=== PATIENT | female | born 1990 | race American Indian/Alaskan Native ===

== ENCOUNTER 2017-06-16 18:07 | Outpatient (CLI) | payer SELFPAY ==
[2017-06-16 18:43] VITALS: BP 104/61
[2017-06-16 19:50] LABS: Bacteria,Urine 2+ /HPF (Negative); Bilirubin,Urine NEG (Negative); Blood,Urine NEG (Negative); Color,Urine Yellow (Yellow); Mucus,Urine FEW /HPF; Nitrite,Urine NEG (Negative); Protein,Urine <15 mg/dL mg/dL (Negative)
[2017-06-16] MEDS ORDERED: LACTATED RINGERS 500 ML IV ONE (20:00)
[2017-06-16 20:25] LABS: Basophils % (Auto) 0.3 % (0.0-1.8); Eosinophils % (Auto) 0.2 % (0.0-4.3); Hematocrit 30.7 % (30.3-42.9); Hemoglobin 10.4 gm/dl (10.1-14.3); Lymphocytes # (Auto) 1.8 K/mm3 (1.2-5.4); Lymphocytes % (Auto) 19.9 % (13.4-35.0); Mean Corpuscular HGB Conc 34 % (30-34); Mean Corpuscular Hemoglobin 29 pg (28-32); Mean Corpuscular Volume 85 fl (79-97); Monocytes # (Auto) 0.8 K/mm3 (0.0-0.8); Monocytes % (Auto) 8.8 % (0.0-7.3); Platelet Count 170 K/mm3 (140-440); Red Blood Count 3.61 M/mm3 (3.65-5.03); Red Cell Distribution Width 13.6 % (13.2-15.2)
--- NOTE | 2017-06-16 20:36 | Ultrasound Report ---
FINAL REPORT PROCEDURE: US OB FOLLOW UP TECHNIQUE: Real-time limited sonographic examination was performed for evaluation of well-being for each fetus with image documentation (1 or more fetuses). CPT 09671 HISTORY: no care COMPARISON: No prior studies are available for comparison. FINDINGS: There is a single living intrauterine gestation currently visualized in the vertex presentation with a heart rate of 136 beats per minute. Subjectively the amount of amniotic fluid appears normal. The amniotic fluid index is normal measuring 12.3 centimeter. The placenta is located fundal and is grade 2. No evidence of placenta abruption or placenta previa. Cervix length approximately 3.1 centimeter. Detailed exam of the anatomy was not performed as this was not requested. No gross abnormality is seen. MEASUREMENTS BPD: 7.7 centimeter equals 31 week 0 day. HC: 29 centimeter equals 31 weeks 6 days. AC: 28.4 centimeter equals 32 week 3 days. FL: 6.1 centimeter equaled 31 week 4 days. Mean Gestational Age (composite criteria): 31 weeks 5 days. Estimated Weight: 1875 grams +/-270 8 grams equals 4 pounds 2 ounces plus or minus ten ounces Interval growth: No prior studies. Estimated Due Date (08/13/2017 +/-3 weeks according to today's study.. IMPRESSION: There is a single living intrauterine gestation currently visualized in the vertex presentation. Average sonographic age by today's study is 31 week 5 days placing the EDC at 08/13/2017 +/-3 weeks. The amount of amniotic fluid subjectively is normal. Placenta located fundal and grade 2. No evidence of placenta abruption or placenta previa. Detailed exam of the anatomy was not performed as this was not requested.
--- NOTE | 2017-06-16 20:39 | Ultrasound Report ---
FINAL REPORT PROCEDURE: US OB TRANSVAGINAL TECHNIQUE: Limited transvaginal OB ultrasound performed to evaluate cervix length CPT 29251 HISTORY: CVX LENGTH COMPARISON: No prior studies are available for comparison. FINDINGS: Cervix length is 2.8 centimeter. No evidence of placenta previa. Limited study of the fetus also performed today under transabdominal OB ultrasound already dictated earlier today. IMPRESSION: Cervix length 2.8 centimeter. No evidence of placenta previa.
== END 2017-06-16 21:00 | disposition home or self-care (01) ==
LOC: TRG 18:07
PROVIDERS: ATTEND Obstetrics & Gynecology Gynecology
DX: O99.333 Smoking (tobacco) complicating pregnancy, third trimester (principal); O47.03 False labor before 37 completed weeks of gestation, third trimester; Z3A.31 31 weeks gestation of pregnancy
CPT/HCPCS: 36415; 76816; 76817; 81001; 82731; 85025; 86592; 86706; 86762; 87806; J7120; 59025; 96360

== ENCOUNTER 2020-01-23 23:53 | Outpatient (CLI) | payer MEDICAID ==
[2020-01-24 00:16] VITALS: BP 141/65
== END 2020-01-24 01:50 | disposition home or self-care (01) ==
LOC: TRG 23:53 → APU 23:54 → TRG 01-24 01:50
PROVIDERS: ATTEND Obstetrics & Gynecology
DX: O47.03 False labor before 37 completed weeks of gestation, third trimester (principal); Z3A.36 36 weeks gestation of pregnancy
CPT/HCPCS: 59025

== ENCOUNTER 2021-01-30 13:45 | Emergency (ER) | payer MEDICAID ==
[2021-01-30 16:30] VITALS: BP 112/70
--- NOTE | 2021-01-30 16:47 | Emergency Department Report ---
ED General Adult HPI - General Chief complaint: Upper Respiratory Infection Stated complaint: COVID SYMPTOMS Time Seen by Provider: 01/30/21 16:35 Source: patient Mode of arrival: Ambulatory Limitations: No Limitations - History of Present Illness Initial comments: 30-year-old -Iranian female patient presents with complaints of cough and loss of taste and smell x2 days. She reports 3 days ago she had a few seconds of shortness of breath, but denies any since or currently. Patient is currently 8 months . She denies any hemoptysis, leg pain/swelling, recent long travel, history of DVT/PE, or recent known sick contacts. She also denies chest pain. Patient states she received COVID-19 testing this morning and that her results will take 3 to 4 days to return. No nausea or vomiting or abdominal pain per patient or fever/chills/sweats. - Related Data Previous Rx's Medication Instructions Recorded Last Taken Type ALBUTEROL NEB's [Proventil 0.083% 2.5 mg IH Q4H PRN #25 neb 06/30/14 Unknown Rx NEBS] Albuterol Sulfate [Ventolin HFA] 2 puff IH Q4H PRN #1 hfa.aer.ad 06/30/14 Unk nown Rx Azithromycin [Zithromax Z-EDGARD] 250 mg PO DAILY #6 tablet 06/30/14 Unknown Rx HYDROcodone/APAP 5-325 [[place] 1 each PO Q6HR PRN #10 tablet 06/30/14 Unknown Rx 5-325 mg TAB] Ondansetron [Zofran Odt] 4 mg SL Q6H PRN #8 tab.rapdis 06/30/14 Unknown Rx Nitrofurantoin Monohyd/M-Cryst 100 mg PO BID #20 capsule 06/16/17 Unknown Rx [Macrobid 100 mg Capsule] Allergies Allergy/AdvReac Type Severity Reaction Status Date / Time No Known Allergies Allergy Verified 06/30/14 16:58 ED Review of Systems ROS: Stated complaint: COVID SYMPTOMS Other details as noted in HPI Constitutional: denies: chills, diaphoresis, fever, malaise, weakness ENT: denies: throat pain Respiratory: cough (Nonproductive). denies: shortness of breath Cardiovascular: denies: chest pain Gastrointestinal: denies: abdominal pain Musculoskeletal: denies: back pain Hematological/Lymphatic: denies: swollen glands ED Past Medical Hx - Past Medical History Previous Medical History?: No Hx Hypertension: No Hx Diabetes: No Hx Deep Vein Thrombosis: No Hx Renal Disease: No Hx Sickle Cell Disease: No Hx Seizures: No Hx Asthma: No Hx HIV: No - Surgical History Past Surgical History?: No - Social History Smoking Status: Former Smoker - Medications Home Medications: Home Medications Medication Instructions Recorded Confirmed Last Taken Type ALBUTEROL NEB's [Proventil 0.083% 2.5 mg IH Q4H PRN #25 neb 06/30/14 Unknown Rx NEBS] Albuterol Sulfate [Ventolin HFA] 2 puff IH Q4H PRN #1 hfa.aer.ad 06/30/14 Unknown Rx Azithromycin [Zithromax Z-EDGARD] 250 mg PO DAILY #6 tablet 06/30/14 Unknown Rx HYDROcodone/APAP 5-325 [[place] 1 each PO Q6HR PRN #10 tablet 06/30/14 Unknown Rx 5-325 mg TAB] Ondansetron [Zofran Odt] 4 mg SL Q6H PRN #8 tab.rapdis 06/30/14 Unknown Rx Nitrofurantoin Monohyd/M-Cryst 100 mg PO BID #20 capsule 06/16/17 Unknown Rx [Macrobid 100 mg Capsule] ED Physical Exam - General Limitations: No Limitations General appearance: alert, in no apparent distress - Head Head exam: Present: atraumatic, normocephalic - Eye Eye exam: Present: normal appearance. Absent: scleral icterus - Respiratory Respiratory exam: Present: normal lung sounds bilaterally. Absent: respiratory distress - Cardiovascular Cardiovascular Exam: Present: regular rate, normal rhythm - Extremities Exam Extremities exam: Absent: calf tenderness - Neurological Exam Neurological exam: Present: alert, oriented X3 - Psychiatric Psychiatric exam: Present: normal affect, normal mood - Skin Skin exam: Present: warm, dry, intact, normal color. Absent: rash ED Course Vital Signs 01/30/21 16:27 Temperature 98 F Pulse Rate 92 H Respiratory 18 Rate Blood Pressure 112/70 O2 Sat by Pulse 99 Oximetry ED Medical Decision Making - Medical Decision Making 30-year-old -Iranian female patient presents with complaints of cough and loss of taste and smell x2 days. She reports 3 days ago she had a few seconds of shortness of breath, but denies any since or currently. Patient is currently 8 months . She denies any hemoptysis, leg pain/swelling, recent long travel, history of DVT/PE, or recent known sick contacts. She also denies chest pain. Patient states she received COVID-19 testing this morning and that her results will take 3 to 4 days to return. No nausea or vomiting or abdominal pain per patient or fever/chills/sweats. Lung exam is normal. She denies any shortness of breath. Pulse ox is normal. Vi tals are within normal limits. Recommend patient self quarantine's until her COVID-19 results are returned. Discussed in detail signs and symptoms that should prompt immediate return to the emergency department with patient who verbalizes understanding. She is well-appearing and stable for discharge home. Patient to follow-up with her primary care doctor in 5 to 7 days. Critical care attestation.: If time is entered above; I have spent that time in minutes in the direct care of this critically ill patient, excluding procedure time. ED Disposition Clinical Impression: Suspected 2019-nCoV infection Disposition: HOME / SELF CARE / HOMELESS Is pt being admited?: No Condition: Stable Instructions: and COVID-19, Prevent the Spread of COVID-19 if You Are Sick - [facility] Referrals: PRIMARY CARE, [Primary Care Provider] - 3-5 Days Forms: Work/School Release Form(ED)
== END 2021-01-30 17:56 | disposition home or self-care (01) ==
LOC: ED 13:45
DX: R05 Cough (principal); Z20.822 Contact with and (suspected) exposure to COVID-19
CPT/HCPCS: 99282

== ENCOUNTER 2021-09-08 12:36 | Emergency (ER) | payer MEDICAID ==
--- NOTE | 2021-09-08 13:10 | Emergency Department Report ---
ED ENT HPI - General Chief complaint: Dental/Oral Stated complaint: TEETH AND GUM PAIN Time Seen by Provider: 09/08/21 13:06 Source: patient Mode of arrival: Ambulatory Limitations: No Limitations - History of Present Illness Initial comments: Patient is a 31-year-old female that comes to the emergency room complaining of left molar/wisdom tooth area pain. Patient denies fever or chills. She has not seen a dentist. ABCs are intact, she is controlling secretions Patient is ambulatory and in no acute distress on arrival to ER MD complaint: tooth pain -: Gradual, days(s) Severity: moderate Severity scale (0 -10): 5 Quality: aching Consistency: constant Improves with: none Worsens with: none Context- Dental: history of dental caries Associated Symptoms: toothache. denies: fever, cough, gum swelling, pain with swallowing, sore throat, tinnitus, hearing loss, discharge from ear, rhinorrhea - Related Data Previous Rx's Medication Instructions Recorded Last Taken Type ALBUTEROL NEB's [Proventil 0.083% 2.5 mg IH Q4H PRN #25 neb 06/30/14 Unknown Rx NEBS] Albuterol Sulfate [Ventolin HFA] 2 puff IH Q4H PRN #1 hfa.aer.ad 06/30/14 Unknown Rx Azithromycin [Zithromax Z-EDGARD] 250 mg PO DAILY #6 tablet 06/30/14 Unknown Rx HYDROcodone/APAP 5-325 [[place] 1 each PO Q6HR PRN #10 tablet 06/30/14 Unknown Rx 5-325 mg TAB] Ondansetron [Zofran Odt] 4 mg SL Q6H PRN #8 tab.rapdis 06/30/14 Unknown Rx Nitrofurantoin Monohyd/M-Cryst 100 mg PO BID #20 capsule 06/16/17 Unknown Rx [Macrobid 100 mg Capsule] Amoxicillin [Trimox CAP] 500 mg PO BID #20 capsule 09/08/21 Unknown Rx Allergies Allergy/AdvReac Type Severity Reaction Status Date / Time No Known Allergies Allergy Verified 06/30/14 16:58 ED Dental HPI - General Chief complaint: Dental/Oral Stated complaint: TEETH AND GUM PAIN Time Seen by Provider: 09/08/21 13:06 - Related Data Previous Rx's Medication Instructions Recorded Last Taken Type ALBUTEROL NEB's [Proventil 0.083% 2.5 mg IH Q4H PRN #25 neb 06/30/14 Unknown Rx NEBS] Albuterol Sulfate [Ventolin HFA] 2 puff IH Q4H PRN #1 hfa.aer.ad 06/30/14 Unknown Rx Azithromycin [Zithromax Z-EDGARD] 250 mg PO DAILY #6 tablet 06/30/14 Unknown Rx HYDROcodone/APAP 5-325 [[place] 1 each PO Q6HR PRN #10 tablet 06/30/14 Unknown Rx 5-325 mg TAB] Ondansetron [Zofran Odt] 4 mg SL Q6H PRN #8 tab.rapdis 06/30/14 Unknown Rx Nitrofurantoin Monohyd/M-Cryst 100 mg PO BID #20 capsule 06/16/17 Unknown Rx [Macrobid 100 mg Capsule] Amoxicillin [Trimox CAP] 500 mg PO BID #20 capsule 09/08/21 Unknown Rx Allergies Allergy/AdvReac Type Severity Reaction Status Date / Time No Known Allergies Allergy Verified 06/30/14 16:58 ED Review of Systems ROS: Stated complaint: TEETH AND GUM PAIN Other details as noted in HPI Comment: All other systems reviewed and negative ED Past Medical Hx - Past Medical History Previous Medical History?: No Hx Hypertension: No Hx Diabetes: No Hx Deep Vein Thrombosis: No Hx Renal Disease: No Hx Sickle Cell Disease: No Hx Seizures: No Hx Asthma: No Hx HIV: No - Surgical History Past Surgical History?: No - Family History Family history: no significant - Social History Smoking Status: Former Smoker Substance Use Type: None - Medications Home Medications: Home Medications Medication Instructions Recorded Confirmed Last Taken Type ALBUTEROL NEB's [Proventil 0.083% 2.5 mg IH Q4H PRN #25 neb 06/30/14 Unknown Rx NEBS] Albuterol Sulfate [Ventolin HFA] 2 puff IH Q4H PRN #1 hfa.aer.ad 06/30/14 Unknown Rx Azithromycin [Zithromax Z-EDGARD] 250 mg PO DAILY #6 tablet 06/30/14 Unknown Rx HYDROcodone/APAP 5-325 [[place] 1 each PO Q6HR PRN #10 tablet 06/30/14 Unknown Rx 5-325 mg TAB] Ondansetron [Zofran Odt] 4 mg SL Q6H PRN #8 tab.rapdis 06/30/14 Unknown Rx Nitrofurantoin Monohyd/M-Cryst 100 mg PO BID #20 capsule 06/16/17 Unknown Rx [Macrobid 100 mg Capsule] Amoxicillin [Trimox CAP] 500 mg PO BID #20 capsule 09/08/21 Unknown Rx ED Physical Exam - General General appearance: alert, in no apparent distress - Head Head exam: Present: atraumatic, normocephalic - Eye Eye exam: Present: normal appearance - ENT ENT exam: Present: mucous membranes moist - Expanded ENT Exam Expanded Mouth exam: Present: normal external inspection. Absent: drooling, trismus, muffled voice, tongue normal, tongue elevation, laceration Teeth exam: Present: dental caries 1 - Other - Neck Neck exam: Present: normal inspection - Respiratory Respiratory exam: Present: normal lung sounds bilaterally. Absent: respiratory distress - Cardiovascular Cardiovascular Exam: Present: regular rate, normal rhythm. Absent: systolic murmur, diastolic murmur, rubs, gallop - GI/Abdominal GI/Abdominal exam: Present: soft, normal bowel sounds - Extremities Exam Extremities exam: Present: normal inspection - Back Exam Back exam: Present: normal inspection - Neurological Exam Neurological exam: Present: alert, oriented X3 - Psychiatric Psychiatric exam: Present: normal affect, normal mood - Skin Skin exam: Present: warm, dry, intact, normal color. Absent: rash ED Medical Decision Making - Medical Decision Making Vital signs normal as documented by RN manually. ABCs intact No abscess, Ludewig's or trismus. Patient taking p.o. Patient will be started on amoxicillin outpatient. She has been instructed to follow-up with a dentist. Patient is ambulatory, not ill nontoxic-appearing on exam. Patient being discharged home with discharge plan of care including diet, medications, activity and follow-up. She verbalizes understanding of plan of care - Differential Diagnosis Dental pain Critical care attestation.: If time is entered above; I have spent that time in minutes in the direct care of this critically ill patient, excluding procedure time. ED Disposition Clinical Impression: Pain, dental, Dental caries Disposition: HOME / SELF CARE / HOMELESS Is pt being admited?: No Does the pt Need Aspirin: No Condition: Stable Instructions: Acute Pain, Adult Additional Instructions: Medication as ordered today for your infection of your tooth Remember this is only temporary Follow-up with dentist as soon as possible I have given you referrals below [id number] Motrin or Tylenol for pain Prescriptions: Amoxicillin [Trimox CAP] 500 mg PO BID #20 capsule Referrals: PRIMARY CARE, [Primary Care Provider] - 3-5 Days [facility] [Outside] - 3-5 Days [facility] [Outside] - 3-5 Days Time of Disposition: 13:29
[2021-09-08 15:31] VITALS: BP 126/74
== END 2021-09-08 15:37 | disposition home or self-care (01) ==
LOC: ED 12:36
DX: K02.9 Dental caries, unspecified (principal); K08.89 Other specified disorders of teeth and supporting structures; Z79.899 Other long term (current) drug therapy; Z87.891 Personal history of nicotine dependence
CPT/HCPCS: 99282